=== PATIENT | female | born 1930 | race Caucasian/White ===

== ENCOUNTER 2016-10-15 23:11 | Observation (INO) ==
--- NOTE | 2016-10-15 23:44 | Emergency Department Note ---
Disposition Clinical Impression: Tachycardia Chest pain Qualifiers: Chest pain type: unspecified Qualified Code(s): R07.9 - Chest pain, unspecified Disposition: Admitted As Inpatient Condition: Good Time of Disposition: 00:48 Chest Pain HPI - General Chief Complaint: ED Chest Pain Stated Complaint: throat pain. high bp Time Seen by Provider: 10/15/16 23:24 Source: patient Mode of arrival: ambulatory Limitations: no limitations Vital Signs Reviewed: Yes Nursing Notes Reviewed: Yes - History of Present Illness HPI Narrative: 86-year-old female with past medical history of hypertension presents with right neck pain radiating up into her right jaw with mild associated shortness of breath. She states that this began about 2 hours ago. When she checked her blood pressure she found her blood pressure to be high in the 140s systolic and her heart rate to be 110-120. Her symptoms did not improve with rest today she came in for evaluation. She denies any history of coronary artery disease. She states that she has never had a left heart catheter, but had a stress test that was normal at least 10 years ago. She denies any recent cough or illness. She takes lisinopril as directed. She has not missed any doses. She does not use any stimulants. No tobacco abuse. Severity scale (1-10): 8 - Related Data Home Medications Medication Instructions Recorded Confirmed Lisinopril 08/28/15 Poly-Ferrex 08/28/15 Previous Rx's Medication Instructions Recorded Azithromycin [Zithromax] 250 mg PO DAILY #6 tablet 08/28/15 Benzonatate [Tessalon] 200 mg PO TID PRN #30 capsule 08/28/15 GuaiFENesin ER [Mucinex] 1,200 mg PO BID #20 tbbp.12hr 08/28/15 Ondansetron ODT [Zofran ODT] 4 mg SL Q6HR PRN #20 tab.rapdis 11/05/15 Allergies Allergy/AdvReac Type Severity Reaction Status Date / Time Penicillins [PCN] Allergy Rash Verified 10/15/16 23:21 All systems ED: reviewed and negative except as stated. Chest Pain PMH - Past Medical History Medical history: Reports: hypertension Psychiatric history: Reports: no psych history - Social History Smoking Status: Never smoker Alcohol use: Reports: none Drug use: Reports: none Physical Exam - Head Head exam: atraumatic, normocephalic, normal inspection - Eye Eye exam: Present: normal appearance, PERRL, EOMI - ENT TMs normal bilaterally. Oropharynx normal. - Neck Neck exam: Present: normal inspection, full ROM, trachea midline, no lymphadenopathy. - Chest Chest inspection: Present: normal inspection, symmetric chest wall rise - Respiratory Respiratory exam: Clear to auscultation bilaterally without wheezes rales or rhonchi Cardiovascular Tachycardia, regular, no murmurs. - Abdominal Exam Abdominal exam: Present: soft, Non-Tender. Absent: tenderness, distention, guarding, rebound, rigidity - Extremities Exam Extremities exam: Present: normal inspection, full ROM - Expanded Lower Extremity Exam Hip/Pelvis exam: Present: normal inspection, full ROM - Back Exam Back exam: Present: normal inspection, full ROM. Absent: tenderness, CVA tenderness (R), CVA tenderness (L) - Neurological Exam Neurological exam: Present: alert, oriented X3, CN II-XII intact - Psychiatric Psychiatric exam: Present: normal affect, normal mood - Skin Skin exam: Present: warm, dry, intact, normal color - General Limitations: no limitations General appearance: alert Course - Reevaluation(s) Reevaluation #1: Troponin negative. No acute findings on x-ray. Patient received nitroglycerin and aspirin with resolution of her symptoms. Heart rate was 90 on my reevaluation. Heart rate was as high as 1:30 during the emergency department stay. We will admit the patient for anginal chest pain and tachycardia. The patient will need evaluation of her chest pain and may need adjustment of her antihypertensives. Time: 00:48 Reevaluation #2: Patient accepted by hospitalist for further management. Time: 01:07 Vital Signs Temperature 98.2 F 10/15/16 23:18 Pulse Rate 121 10/15/16 23:18 Respiratory Rate 18 10/15/16 23:18 Blood Pressure 162/89 10/15/16 23:18 O2 Sat by Pulse Oximetry 94 L 10/15/16 23:18 Temperature 98.2 F 10/15/16 23:18 Pulse Rate 108 10/16/16 00:01 Respiratory Rate 18 10/16/16 02:09 Blood Pressure 133/65 10/16/16 02:09 O2 Sat by Pulse Oximetry 95 10/16/16 00:01 Oxygen Delivery Oxygen Delivery Room Air Chest Pain - Medical Records Medical records reviewed: Yes I reviewed the patient's medical records. - Lab Data Lab results reviewed: Yes I reviewed the patient's lab results. Result diagrams: 10/15/16 23:45 10/15/16 23:45 Lab Results 10/15/16 10/15/16 10/15/16 Range/Units 23:45 23:45 23:45 WBC 17.3 H (4.3-11.1) K/mcL RBC 4.97 (3.82-4.97) M/mcL Hgb 13.6 (11.5-15.4) g/dL Hct 43.2 (35.3-44.9) % MCV 86.9 (83.0-100.0) fL MCH 27.4 L (28.0-33.3) pg MCHC 31.5 L (31.6-35.5) g/dL RDW 14.0 (11.5-14.5) % Plt Count 317 (140-400) K/mcL MPV 9.4 (9.4-12.4) fL Immature Gran % 0.5 (0-4) % Seg Neutrophils % 77.9 % Lymphocytes % 12.5 % Monocytes % 7.2 % Eosinophils % 1.4 % Basophils % 0.5 % Neutrophils # 13.5 H (1.6-8.9) K/mcL Lymphocytes # 2.2 (0.6-4.6) K/mcL Monocytes # 1.3 (0.0-1.3) K/mcL Eosinophils # 0.2 (0.0-0.6) K/mcL Basophils # 0.1 (0.0-0.2) K/mcL PT 10.2 (9.4-12.1) Seconds INR 1.0 APTT 26.6 (26.0-36.0) Seconds Sodium 138 (136-145) mEq/L Potassium 3.4 L (3.5-4.5) mEq/L Chloride 103 (98-109) mEq/L Carbon Dioxide 25 (19-29) mEq/L BUN 18 (7-20) mg/dL Creatinine 1.07 (0.57-1.11) mg/dL Est GFR ( Amer) 59 L (> 60) Est GFR (Non-Af Amer) 49 L (> 60) BUN/Creatinine Ratio 17 (6-26) Glucose 143 H (70-99) mg/dL Calculated Osmolality 290 (280-300) Calcium 9.5 (8.6-10.8) mg/dL Troponin I (0-0.03) ng/mL 10/15/16 Range/Units 23:45 WBC (4.3-11.1) K/mcL RBC (3.82-4.97) M/mcL Hgb (11.5-15.4) g/dL Hct (35.3-44.9) % MCV (83.0-100.0) fL MCH (28.0-33.3) pg MCHC (31.6-35.5) g/dL RDW (11.5-14.5) % Plt Count (140-400) K/mcL MPV (9.4-12.4) fL Immature Gran % (0-4) % Seg Neutrophils % % Lymphocytes % % Monocytes % % Eosinophils % % Basophils % % Neutrophils # (1.6-8.9) K/mcL Lymphocytes # (0.6-4.6) K/mcL Monocytes # (0.0-1.3) K/mcL Eosinophils # (0.0-0.6) K/mcL Basophils # (0.0-0.2) K/mcL PT (9.4-12.1) Seconds INR APTT (26.0-36.0) Seconds Sodium (136-145) mEq/L Potassium (3.5-4.5) mEq/L Chloride (98-109) mEq/L Carbon Dioxide (19-29) mEq/L BUN (7-20) mg/dL Creatinine (0.57-1.11) mg/dL Est GFR ( Amer) (> 60) Est GFR (Non-Af Amer) (> 60) BUN/Creatinine Ratio (6-26) Glucose (70-99) mg/dL Calculated Osmolality (280-300) Calcium (8.6-10.8) mg/dL Troponin I 0.00 (0-0.03) ng/mL - Radiology Data Radiology results reviewed: Yes I reviewed the patient's radiology results. - EKG Data EKG attestation: Yes I reviewed and interpreted this EKG. EKG results narrative: Sinus tachycardia at 116 with left axis deviation. There is a right bundle- branch block with QRS of 131. No ST elevation or depression. No old EKG available. Heart Score - Score History: Moderately Suspicious EKG: Non Specific repolarisation Disturbance Age: Greater than 65 Risk Factors: 1-2 risk factors Troponin: Less than normal limit HEART Score Total: 5 Attestation Statement - Attestation Attestation: For this encounter, I have reviewed the resident, [employer], or PA documentation, treatment plan, and medical decision making; and I have had face to face time with this patient. 86-year-old female presents with concerns of right jaw pain and shortness of breath. Patient states that these symptoms occurred while doing work around the house. Patient states that this is never happened to her before. She denies any recent trauma. Patient denies associated nausea or diaphoresis. On initial presentation the patient is tachycardic. She is satting well. Patient has no clinical signs or symptoms of DVT. No history of recent immobilization or surgery within the previous 4 weeks. No recent long flight or travel. No previous PE or DVT in personal or family history. No history of hemoptysis. No history of malignancy with treatment within the past 6 months. Initial trop negative. ECG shows sinus tachycardia without evidence of STEMI. Patient has a HEART score of 5. There is concern that the patient's jaw pain is a cardiac equivalent and we will admit the patient for further care. Patient comfortable with the plan for admission to the hospital for continued care.
[2016-10-15] MEDS ORDERED: Aspirin 81 MG TAB.CHEW PO ONE (23:46)
[2016-10-15] MEDS ORDERED: Nitroglycerin 0.4 MG TAB.SUBL SL STA (23:46)
[2016-10-15 23:51] LABS: Basophils # 0.1 K/mcL (0.0-0.2); Basophils % 0.5 %; Eosinophils # 0.2 K/mcL (0.0-0.6); Eosinophils % 1.4 %; Hematocrit 43.2 % (35.3-44.9); Hemoglobin 13.6 g/dL (11.5-15.4); Immature Granulocytes % 0.5 % (0-4); Lymphocytes # 2.2 K/mcL (0.6-4.6); Lymphocytes % 12.5 %; Mean Corpuscular HGB Conc 31.5 g/dL (31.6-35.5); Mean Corpuscular Hemoglobin 27.4 pg (28.0-33.3); Mean Corpuscular Volume 86.9 fL (83.0-100.0); Mean Platelet Volume 9.4 fL (9.4-12.4); Monocytes # 1.3 K/mcL (0.0-1.3); Monocytes % 7.2 %; Neutrophils # 13.5 K/mcL (1.6-8.9); Platelet Count 317 K/mcL (140-400); Red Blood Count 4.97 M/mcL (3.82-4.97); Segmented Neutrophils % 77.9 %
[2016-10-15 23:57] LABS: Prothrombin Time 10.2 Seconds (9.4-12.1)
[2016-10-15 23:59] LABS: Activated Partial Thrombo Time 26.6 Seconds (26.0-36.0)
[2016-10-16 00:04] LABS: Calcium 9.5 mg/dL (8.6-10.8); Potassium 3.4 mEq/L (3.5-4.5)
[2016-10-16] MEDS ORDERED: Benzonatate 100 MG CAPSULE PO PRN (01:33)
[2016-10-16] MEDS ORDERED: *HR* Morphine 2 MG/ML SYRINGE IVP STA (01:37)
[2016-10-16] MEDS ORDERED: *HR* Metoprolol 5 MG/5 ML VIAL IVP PRN (01:37)
[2016-10-16] MEDS ORDERED: Nitroglycerin 0.4 MG TAB.SUBL SL PRN (01:37)
[2016-10-16] MEDS ORDERED: *HR* LORazepam 0.5 MG TABLET PO PRN (01:40)
[2016-10-16] MEDS ORDERED: Potassium Chloride 40 MEQ, Lidocaine 1% 2 ML in D5% in Water 500 ML IVPB ONE (01:40)
--- NOTE | 2016-10-16 04:28 | Internal Med History&Physical ---
<Corinne Wallace - Last Filed: 10/16/16 04:14> Date of Encounter: 10/16/16 Time of Encounter: 03:30 Assessment and Plan (1) Neck pain on right side Status: Acute Patient had signs of typical anginal pain in the right side of her neck that was relieved with nitroglycerin. CT cervical spine pending. Patient is declining stress test at this time, but is willing to talk to cover cutter machine about it Her WAYNE score is 2, indicating 8% risk of all cause mortality at 14 days. EKG reviewed: showed sinus tachy with RBBB. Initial troponin zero, will trend. Patient started on ASA, statin, BB repeat EKG in morning. Echo pending. cardiac diet. consult to cardiology for evaluation and recommendations. (2) Leukocytosis Status: Acute WBC at ed was 17.3, repeat CBC showed white count of 14.9. Etiology unclear at this time. CXR significant for hiatal hernia, small nodular density at left base, no acute cardiopulmonary process. urinalysis with culture pending. Qualifiers: Leukocytosis type: unspecified Qualified Code(s): D72.829 - Elevated white blood cell count, unspecified (3) HTN (hypertension) Status: Acute continue home med lisinopril Qualifiers: Hypertension type: essential hypertension Qualified Code(s): I10 - Essential (primary) hypertension (4) DVT prophylaxis Status: Acute Heparin SQ Internal Medicine - H&P: HPI Chief complaint: Right neck pain Admitted From: Emergency Dept Plans for Post Hospital Care: Home History of present illness: PCP: Siena Vargas Ms. Espinal is a 86 year old female with PMHx of HTN. She came to the ED with CC of right neck pain that started at 5:30 pm yesterday evening. She states that her pain was in her right jaw bone and radiated down her neck. She took Ibuprofen with no relief. When the pain started, it was about 7-8 out of 10. Patient states that she did NOT have chest pain at any point during the evening. She also denied having Shortness of breath. When she got to the ED, she received ASA and nitroglycerin, which relieved the neck pain. At the ED she was found to have HR 121, BP 162/89. Upon interview, the patient states that her neck pain is 0/10. Patient denies headache, slurred speech, facial drooping. Denies history of motor vehicle accidents or falls. Social Hx: lives with her son. Not a smoker and has no hx of smoking. Denies alcohol or illicit drug use. Family Hx: mother at 67, cause unknown. Dad at 56 from emphysema. Her paternal grandfather had emphysema as well. She has one daughter with cervical cancer. Her son has COPD and is a diabetic. Surgical Hx: tonsilllectomy at 15, Left breast biopsy 30 years ago. Past Med Surg Social Fam HX - Past Medical History Medical history: hypertension Psychiatric history: no psych history - Social History Smoking Status: Never smoker Smokeless Tobacco Status: No Alcohol use: none Drug use: none - Family History Father Name: Jim Briggs Living Status: Age at : 56 Cause of : Emphasyma Hx Family Cardiac Disorders: No Hx Family Respiratory Disorders: Yes (Emphasyma) Hx Family Cancer: No Hx Family GI Disorders: No Hx Family Genitourinary Disorders: No Hx Family Endocrine Disorder: No Hx Family Musculoskeletal Disorders: No Hx Family Neuromuscular Disorders: No Hx Family Neurologic Disorders: No Hx Family HEENT Disorders: No Hx Family Autoimmune Disorders: No Hx Family Reproductive Disorders: No Hx Family Psychosocial Disorders: No Hx Family Medical Disorders: No Internal Medicine - H&P: Meds Lisinopril [Zestril] 20 mg PO DAILY 08/28/15 [History] Aspirin 81 mg PO DAILY 30 Days 10/16/16 [Rx] Atorvastatin [Lipitor] 20 mg PO HS 30 Days 10/16/16 [Rx] Metoprolol [Lopressor] 12.5 mg PO BID 30 Days 10/16/16 [Rx] Allergies Penicillins [PCN] Allergy (Verified 10/16/16 09:14) Rash All Systems PM: A 10-system review of systems was performed and is negative for pertinent findings except as documented above in the HPI. - Constitutional Constitutional: no anorexia, no chills, no falls - EENT Eyes: no blurry vision, no change in vision Nose, mouth and throat: neck pain - Cardiovascular Cardiovascular ROS IM: no chest pain, no claudication, no lightheadedness, no syncope - Respiratory Respiratory: no wheezing - Gastrointestinal Gastrointestinal: no abdominal pain, no hematochezia, no melena, no vomiting - Musculoskeletal Musculoskeletal ROS IM: neck pain - Neurological Neurological ROS: no abnormal gait, no abnormal movements, no abnormal speech, no disequilibrium, no dizziness, no frequent falls, no headache(s) - Constitutional Vitals: Temp Pulse Resp BP Pulse Ox 98.0 F 87 16 165/74 94 L 10/16/16 03:03 10/16/16 03:03 10/16/16 03:03 10/16/16 03:03 10/16/16 03:03 General appearance: Present: A&O X 3, pleasant, no acute distress, answers questions appropriately - Head Head exam: Present: atraumatic, normocephalic - Neck Neck exam general surgery: Present: nuchal rigidity, supple, trachea midline. Absent: tenderness, thyromegaly Additional comments: restricted neck motion in extension, but patient states this is chronic for her. noticeable restriction in range of motion in flexion, rotation left and right, and Sidebending left and right at extremes. - Respiratory Respiratory exam: Present: CTAB - Cardiovascular Cardiovascular exam: Present: RRR, +S1, +S2 - GI/Abdominal GI/Abdominal exam: Present: normal bowel sounds, soft. Absent: distended, guarding, tenderness - Extremities Exam Extremities exam: Absent: cyanotic, pedal edema, tenderness - Back Exam Additional comments: freckles noted on back. - Neurological Exam Neurological exam: Present: alert, oriented X3, no focal deficits. Absent: facial droop, speech deficit - Skin Additional comments: two plaques noted on left of stomach, and one under the right breast. Internal Med - H&P Results - Labs CBC & Chem 7: 10/15/16 23:45 10/15/16 23:45 <Dante De La Cruz - Last Filed: 10/17/16 02:04> Date of Encounter: 10/16/16 Internal Medicine - H&P: HPI History of present illness: Ms. Espinal is a 86 year old female admitted to [facility] with chief complaint of acute right neck and jaw pain (rule out anginal equivalent). The patient was visited and interviewed and examined. I examined this patient and my medical decision-making was reviewed with the Resident Physician. I agree with the documented findings, disposition and treatment plan as described except to the extent set forth below. Cumulative laboratory and radiographic data was reviewed and considered and discussed. Pertinent ancillary medical records including ECW and PCI documentation was reviewed and considered. Given the patient's presenting concerns, past medical history, clinical findings and symptoms, she is admitted at this time to undergo further evaluation and disposition. Orders were written as per the computerized physician order increase system.................... All Systems PM: A 10-system review of systems was performed and is negative for pertinent findings except as documented above in the HPI. - Constitutional Vitals: Temp Pulse Resp BP Pulse Ox 99.7 F H 81 16 143/74 94 L 10/16/16 19:09 10/16/16 19:09 10/16/16 19:09 10/16/16 19:09 10/16/16 19:09 Internal Med - H&P Results - Labs CBC & Chem 7: 10/16/16 04:03 10/16/16 04:03 Labs: Short CBC 10/16/16 Range/Units 04:03 WBC 14.9 H (4.3-11.1) K/mcL Hgb 13.0 (11.5-15.4) g/dL Hct 40.9 (35.3-44.9) % Plt Count 297 (140-400) K/mcL Neutrophils # 11.0 H (1.6-8.9) K/mcL BMP 10/16/16 04:03 Sodium 139 Potassium 3.5 Chloride 103 Carbon Dioxide 25 BUN 16 Creatinine 0.96 Glucose 119 H Calcium 9.2 Cardiac Enzymes 10/16/16 10/16/16 Range/Units 06:25 13:02 Troponin I 0.02 0.02 (0-0.03) ng/mL Liver Function 10/16/16 Range/Units 04:03 Total Bilirubin 0.4 (0.2-1.2) mg/dL AST 18 (5-34) Units/L ALT 8 (0-55) Units/L Alkaline Phosphatase 61 (38-126) Units/L Albumin 3.3 L (3.5-5.0) g/dL Urine 10/16/16 Range/Units 07:50 Urine Color Yellow (Yellow) Urine Clarity Clear (Clear) Urine pH 7.0 (5.0-8.0) pH Units Ur Specific [place] 1.008 L (1.010-1.025) Urine Protein Negative (Neg-Trace) mg/dL Urine Glucose (UA) Normal (Normal) mg/dL - ABG Interpretation ABG results: 10/16/16 04:03 VBG pH 7.39 VBG pCO2 51 VBG pO2 35 VBG HCO3 30.9 H - Impressions ITS Impressions Cervical Spine CT 10/16/16 08:30 IMPRESSION: 1. No acute abnormality of the cervical spine. 2. Multilevel degenerative changes are detailed above. These are most significant at C5-6. D/ / Clark Talbert MD / Clark Talbert MD Interpreting Provider: Clark Talbert MD Vital Signs Temp Pulse Resp BP Pulse Ox 10/16/16 19:09 99.7 F H 81 16 143/74 94 L 10/16/16 15:41 98.9 F 81 17 137/71 96 10/16/16 11:10 98.1 F 76 16 120/70 96 10/16/16 09:00 98.1 F 99 18 166/69 97 10/16/16 03:05 94 L 10/16/16 03:03 98.0 F 87 16 165/74 94 L 10/16/16 02:09 18 133/65 Intake and Output 10/16/16 10/16/16 10/17/16 15:59 23:59 07:59 Intake Total 360 / 360 120 / 120 Balance 360 / 360 120 / 120 Intake: Oral 360 / 360 120 / 120 Other: Meal Lunch Dinner Percent of Meal Consumed 100% 100% Short CBC 10/16/16 Range/Units 04:03 WBC 14.9 H (4.3-11.1) K/mcL Hgb 13.0 (11.5-15.4) g/dL Hct 40.9 (35.3-44.9) % Plt Count 297 (140-400) K/mcL Neutrophils # 11.0 H (1.6-8.9) K/mcL BMP 10/16/16 Range/Units 04:03 Sodium 139 (136-145) mEq/L Potassium 3.5 (3.5-4.5) mEq/L Chloride 103 (98-109) mEq/L Carbon Dioxide 25 (19-29) mEq/L BUN 16 (7-20) mg/dL Creatinine 0.96 (0.57-1.11) mg/dL Glucose 119 H (70-99) mg/dL Calcium 9.2 (8.6-10.8) mg/dL Cardiac Enzymes 10/16/16 10/16/16 Range/Units 13:02 06:25 Troponin I 0.02 0.02 (0-0.03) ng/mL Liver Function 10/16/16 Range/Units 04:03 Total Bilirubin 0.4 (0.2-1.2) mg/dL AST 18 (5-34) Units/L ALT 8 (0-55) Units/L Alkaline Phosphatase 61 (38-126) Units/L Albumin 3.3 L (3.5-5.0) g/dL Urine 10/16/16 Range/Units 07:50 Urine Color Yellow (Yellow) Urine Clarity Clear (Clear) Urine pH 7.0 (5.0-8.0) pH Units Ur Specific [place] 1.008 L (1.010-1.025) Urine Protein Negative (Neg-Trace) mg/dL Urine Glucose (UA) Normal (Normal) mg/dL 10/16/16 04:03 VBG pH 7.39 VBG pCO2 51 VBG pO2 35 VBG HCO3 30.9 H Allergies Allergy/AdvReac Type Severity Reaction Status Date / Time Penicillins [PCN] Allergy Rash Verified 10/16/16 09:14 Abnormal lab results WBC 14.9 K/mcL (4.3-11.1) H 10/16/16 04:03 MCH 27.4 pg (28.0-33.3) L 10/16/16 04:03 Neutrophils # 11.0 K/mcL (1.6-8.9) H 10/16/16 04:03 VBG HCO3 30.9 mEq/L (21-27) H 10/16/16 04:03 Est GFR (Non-Af Amer) 55 (> 60) L 10/16/16 04:03 Glucose 119 mg/dL (70-99) H 10/16/16 04:03 C-Reactive Protein 13 mg/L (Less than 5) H 10/16/16 04:03 Albumin 3.3 g/dL (3.5-5.0) L 10/16/16 04:03 Triglycerides 158 mg/dL (< 150) H 10/16/16 04:03 Cholesterol 210 mg/dL (< 200) H 10/16/16 04:03 LDL Cholesterol, Calc 116 mg/dL (0-99) H 10/16/16 04:03 VLDL Cholesterol, Calc 32 mg/dL (< 31) H 10/16/16 04:03 HDL Cholesterol 62 mg/dL (40-59) H 10/16/16 04:03 Ur Specific [place] 1.008 (1.010-1.025) L 10/16/16 07:50 Urine Blood Small (Negative) H 10/16/16 07:50 Ur Leukocyte Esterase Trace (Negative) H 10/16/16 07:50 Urine Microscopic RBC 3-5 per hpf (0-3) H 10/16/16 07:50 Abnormal lab results WBC 14.9 K/mcL (4.3-11.1) H 10/16/16 04:03 MCH 27.4 pg (28.0-33.3) L 10/16/16 04:03 Neutrophils # 11.0 K/mcL (1.6-8.9) H 10/16/16 04:03 VBG HCO3 30.9 mEq/L (21-27) H 10/16/16 04:03 Est GFR (Non-Af Amer) 55 (> 60) L 10/16/16 04:03 Glucose 119 mg/dL (70-99) H 10/16/16 04:03 C-Reactive Protein 13 mg/L (Less than 5) H 10/16/16 04:03 Albumin 3.3 g/dL (3.5-5.0) L 10/16/16 04:03 Triglycerides 158 mg/dL (< 150) H 10/16/16 04:03 Cholesterol 210 mg/dL (< 200) H 10/16/16 04:03 LDL Cholesterol, Calc 116 mg/dL (0-99) H 10/16/16 04:03 VLDL Cholesterol, Calc 32 mg/dL (< 31) H 10/16/16 04:03 HDL Cholesterol 62 mg/dL (40-59) H 10/16/16 04:03 Ur Specific [place] 1.008 (1.010-1.025) L 10/16/16 07:50 Urine Blood Small (Negative) H 10/16/16 07:50 Ur Leukocyte Esterase Trace (Negative) H 10/16/16 07:50 Urine Microscopic RBC 3-5 per hpf (0-3) H 10/16/16 07:50 Laboratory Results WBC 14.9 K/mcL (4.3-11.1) H 10/16/16 04:03 RBC 4.74 M/mcL (3.82-4.97) 10/16/16 04:03 Hgb 13.0 g/dL (11.5-15.4) 10/16/16 04:03 Hct 40.9 % (35.3-44.9) 10/16/16 04:03 MCV 86.3 fL (83.0-100.0) 10/16/16 04:03 MCH 27.4 pg (28.0-33.3) L 10/16/16 04:03 MCHC 31.8 g/dL (31.6-35.5) 10/16/16 04:03 RDW 14.1 % (11.5-14.5) 10/16/16 04:03 Plt Count 297 K/mcL (140-400) 10/16/16 04:03 MPV 9.9 fL (9.4-12.4) 10/16/16 04:03 Immature Gran % 0.6 % (0-4) 10/16/16 04:03 Seg Neutrophils % 74.1 % 10/16/16 04:03 Lymphocytes % 15.6 % 10/16/16 04:03 Monocytes % 8.7 % 10/16/16 04:03 Eosinophils % 0.5 % 10/16/16 04:03 Basophils % 0.5 % 10/16/16 04:03 Neutrophils # 11.0 K/mcL (1.6-8.9) H 10/16/16 04:03 Lymphocytes # 2.3 K/mcL (0.6-4.6) 10/16/16 04:03 Monocytes # 1.3 K/mcL (0.0-1.3) 10/16/16 04:03 Eosinophils # 0.1 K/mcL (0.0-0.6) 10/16/16 04:03 Basophils # 0.1 K/mcL (0.0-0.2) 10/16/16 04:03 PT 10.2 Seconds (9.4-12.1) 10/15/16 23:45 INR 1.0 10/15/16 23:45 APTT 26.6 Seconds (26.0-36.0) 10/15/16 23:45 VBG pH 7.39 pH Units (7.32-7.42) 10/16/16 04:03 VBG pCO2 51 mmHg (41-51) 10/16/16 04:03 VBG pO2 35 mmHg (25-40) 10/16/16 04:03 VBG HCO3 30.9 mEq/L (21-27) H 10/16/16 04:03 Sodium 139 mEq/L (136-145) 10/16/16 04:03 Potassium 3.5 mEq/L (3.5-4.5) 10/16/16 04:03 Chloride 103 mEq/L (98-109) 10/16/16 04:03 Carbon Dioxide 25 mEq/L (19-29) 10/16/16 04:03 BUN 16 mg/dL (7-20) 10/16/16 04:03 Creatinine 0.96 mg/dL (0.57-1.11) 10/16/16 04:03 Est GFR ( Amer) > 60 (> 60) 10/16/16 04:03 Est GFR (Non-Af Amer) 55 (> 60) L 10/16/16 04:03 BUN/Creatinine Ratio 17 (6-26) 10/16/16 04:03 Glucose 119 mg/dL (70-99) H 10/16/16 04:03 Est Mean Plasma Glucose 111 mg/dl 10/16/16 04:03 Hemoglobin A1c 5.5 % (-5.6) 10/16/16 04:03 Calculated Osmolality 290 (280-300) 10/16/16 04:03 Calcium 9.2 mg/dL (8.6-10.8) 10/16/16 04:03 Ionized Calcium 1.16 mmol/L (1.15-1.35) 10/16/16 04:03 Phosphorus 2.7 mg/dL (2.3-4.7) 10/16/16 04:03 Magnesium 1.7 mg/dL (1.6-2.6) 10/16/16 04:03 Total Bilirubin 0.4 mg/dL (0.2-1.2) 10/16/16 04:03 AST 18 Units/L (5-34) 10/16/16 04:03 ALT 8 Units/L (0-55) 10/16/16 04:03 Alkaline Phosphatase 61 Units/L (38-126) 10/16/16 04:03 Troponin I 0.02 ng/mL (0-0.03) 10/16/16 13:02 C-Reactive Protein 13 mg/L (Less than 5) H 10/16/16 04:03 B-Natriuretic Peptide 66 pg/mL (0-100) 10/16/16 04:03 Serum Total Protein 6.3 g/dL (6.0-8.3) 10/16/16 04:03 Albumin 3.3 g/dL (3.5-5.0) L 10/16/16 04:03 Globulin 3.0 g/dL (2.4-3.5) 10/16/16 04:03 Albumin/Globulin Ratio 1.1 (1.1-2.2) 10/16/16 04:03 Triglycerides 158 mg/dL (< 150) H 10/16/16 04:03 Cholesterol 210 mg/dL (< 200) H 10/16/16 04:03 LDL Cholesterol, Calc 116 mg/dL (0-99) H 10/16/16 04:03 VLDL Cholesterol, Calc 32 mg/dL (< 31) H 10/16/16 04:03 HDL Cholesterol 62 mg/dL (40-59) H 10/16/16 04:03 Cholesterol/HDL Ratio 3.4 (0-4.9) 10/16/16 04:03 TSH 1.970 mcIU/mL (0.350-4.840) 10/16/16 04:03 Free T4 0.88 ng/dl (0.70-1.48) 10/16/16 04:03 Free T3 2.12 pg/mL (1.71-3.71) 10/16/16 04:03 Urine Color Yellow (Yellow) 10/16/16 07:50 Urine Clarity Clear (Clear) 10/16/16 07:50 Urine pH 7.0 pH Units (5.0-8.0) 10/16/16 07:50 Ur Specific [place] 1.008 (1.010-1.025) L 10/16/16 07:50 Urine Protein Negative mg/dL (Neg-Trace) 10/16/16 07:50 Urine Glucose (UA) Normal mg/dL (Normal) 10/16/16 07:50 Urine Ketones Negative mg/dL (Negative) 10/16/16 07:50 Urine Blood Small (Negative) H 10/16/16 07:50 Urine Nitrite Negative (Negative) 10/16/16 07:50 Urine Bilirubin Negative (Negative) 10/16/16 07:50 Urine Urobilinogen Normal mg/dL (Normal) 10/16/16 07:50 Ur Leukocyte Esterase Trace (Negative) H 10/16/16 07:50 Urine Microscopic RBC 3-5 per hpf (0-3) H 10/16/16 07:50 Urine Microscopic WBC 0-3 per hpf (0-3) 10/16/16 07:50 Ur Squamous Epith Cells Few per lpf (None-Few) 10/16/16 07:50 Urine Bacteria None Seen per hpf (None-Few) 10/16/16 07:50 Hyaline Casts None Seen per lpf (None-Few) 10/16/16 07:50 Blood Type A POSITIVE 10/16/16 04:03 Antibody Screen NEGATIVE 10/16/16 04:03 Impressions Chest X-Ray 10/15/16 23:30 IMPRESSION: Hiatal hernia. No acute cardiopulmonary disease identified. Left lower lobe pulmonary nodule. Follow-up as originally recommended. D/ / Otto Woodall MD / Otto Woodall MD Interpreting Provider: Otto Woodall MD Cervical Spine CT 10/16/16 08:30 IMPRESSION: 1. No acute abnormality of the cervical spine. 2. Multilevel degenerative changes are detailed above. These are most significant at C5-6. D/ / Clark Talbert MD / Clark Talbert MD Interpreting Provider: Clark Talbert MD - Attending Attestation My signature below is to certify that this patient is under my care and that I, or the Resident Physician working with me, has had a efdu-qi-dopt encounter with this patient. Plan of care has been reviewed and discussed in detail with the patient and family. Questions were addressed to her satisfaction and reassurance. Advance care directive discussion briefly addressed. The patient does not declare any healthcare restrictions at this time. Outpatient medication schedules will be reviewed and confirmed and facilitated as appropriate. Reconciliation of home treatments including adjustments, substitutions and reintroduction into the treatment regimen and we will address necessary maintenance therapies for chronic pre-existing medical conditions. Smoking cessation counseling briefly addressed. The patient is a nonsmoker. Hospital course will be dependent on clinical findings, treatment response and potential consultative interventions. The patient is at risk for acute clinical decline and morbidity given the presenting chief complaint, findings and associated comorbidities. Condition is serious. Prognosis is cautiously optimistic. CODE STATUS is full.
[2016-10-16 04:52] LABS: Basophils # 0.1 K/mcL (0.0-0.2); Basophils % 0.5 %; Eosinophils # 0.1 K/mcL (0.0-0.6); Eosinophils % 0.5 %; Hematocrit 40.9 % (35.3-44.9); Immature Granulocytes % 0.6 % (0-4); Lymphocytes # 2.3 K/mcL (0.6-4.6); Lymphocytes % 15.6 %; Mean Corpuscular HGB Conc 31.8 g/dL (31.6-35.5); Mean Corpuscular Hemoglobin 27.4 pg (28.0-33.3); Mean Corpuscular Volume 86.3 fL (83.0-100.0); Mean Platelet Volume 9.9 fL (9.4-12.4); Monocytes # 1.3 K/mcL (0.0-1.3); Monocytes % 8.7 %; Platelet Count 297 K/mcL (140-400); Red Blood Count 4.74 M/mcL (3.82-4.97); Red Cell Distribution Width 14.1 % (11.5-14.5); Segmented Neutrophils % 74.1 %
[2016-10-16 05:00] LABS: VBG HCO3 30.9 mEq/L (21-27); VBG PH 7.39 pH Units (7.32-7.42)
[2016-10-16 05:01] LABS: Hemoglobin A1C 5.5 %
[2016-10-16 05:10] LABS: Alanine Aminotransferase 8 Units/L (0-55); Albumin 3.3 g/dL (3.5-5.0); Albumin/Globulin Ratio 1.1 (1.1-2.2); Alkaline Phosphatase 61 Units/L (38-126); Aspartate Amino Transferase 18 Units/L (5-34); BUN/Creatinine Ratio 17 (6-26); Bilirubin,Total 0.4 mg/dL (0.2-1.2); Blood Urea Nitrogen 16 mg/dL (7-20); Calcium 9.2 mg/dL (8.6-10.8); Carbon Dioxide 25 mEq/L (19-29); Chloride 103 mEq/L (98-109); Chol/HDL Ratio 3.4 (0-4.9); Cholesterol 210 mg/dL (< 200); Glucose 119 mg/dL (70-99); HDL Cholesterol 62 mg/dL (40-59); LDL Cholesterol,Calculated 116 mg/dL (0-99); Magnesium 1.7 mg/dL (1.6-2.6); Osmolality,Calculated 290 (280-300); Phosphorous 2.7 mg/dL (2.3-4.7); Potassium 3.5 mEq/L (3.5-4.5); Sodium 139 mEq/L (136-145); Total Protein 6.3 g/dL (6.0-8.3); Triglycerides 158 mg/dL (< 150); eGFR For African Americans > 60 (> 60); eGFR For Non-African Americans 55 (> 60)
[2016-10-16] MEDS: Lisinopril 20 MG TABLET PO SCH ×2 (05:18→09:58)
[2016-10-16 05:33] LABS: Triiodothyronine (T3) Free 2.12 pg/mL (1.71-3.71)
[2016-10-16 05:56] LABS: C-Reactive Protein 13 mg/L (Less than 5)
[2016-10-16] MEDS: *HR* Heparin 5,000 UNIT/ML VIAL SQ SCH ×3 (07:23→14:01)
[2016-10-16] MEDS: Melatonin 3 MG TABLET PO SCH ×2 (07:24→20:34)
[2016-10-16 08:06] LABS: Bilirubin,Urine Negative (Negative); Blood,Urine Small (Negative); Clarity,Urine Clear (Clear); Color,Urine Yellow (Yellow); Glucose,Urine (UA) Normal (Normal); Ketones,Urine Negative (Negative); Leukocyte Esterase,Urine Trace (Negative); Nitrite,Urine Negative (Negative); Protein,Urine Negative (Neg-Trace); Specific Gravity,Urine 1.008 (1.010-1.025); Urobilinogen,Urine Normal (Normal)
[2016-10-16 08:09] LABS: Bacteria,Urine None Seen per hpf (None-Few); Hyaline Casts,Urine None Seen per lpf (None-Few); Squamous Epithelial Cell,Urine Few per lpf (None-Few); WBC,Urine 0-3 per hpf (0-3)
[2016-10-16] MEDS ORDERED: Aspirin 81 MG TAB.CHEW PO SCH (09:00)
--- NOTE | 2016-10-16 11:36 | Cardiology Consult Note ---
Date of Encounter: 10/16/16 Time of Encounter: 11:40 Assessment and Plan (1) Neck pain on right side Current Visit: Yes Status: Acute Per cardiology: -Patient with right sided neck and jaw pain. Pain not aggervated by factors, but pain was relieved by nitroglycerin in ER. Denies chest pain. Denies cardiac history. Denies family history of cardiac disease. Currently neck/jaw pain free. -Patient very active at home and denies chest, neck, or jaw pain with activities. CT of C-spine reviewed with multiple levels of degenerative joint disease noted. -EKG reviewed, sinus rhythm with right bundle branch block. -Symptoms atypical for anginal chest pain. Echocardiogram pending. Discussed at length with patient and family regarding stress test options. Patient declining stress test at this time. Patient states she will decide about a stress test once echocardiogram results are reviewed. -Will continue to monitor for echocardiogram results. (2) HTN (hypertension) Current Visit: Yes Status: Chronic Per cardiology: -Patient with known history of hypertension. Patient takes lsinopril at home and states compliance with medications. BP on admission 160s, currently 120s. -Continue pura inhibitor and beta brenda as ordered per primary service. -Consider continuing beta brenda as outpatient. -Will continue to monitor. Qualifiers: Hypertension type: essential hypertension Qualified Code(s): I10 - Essential (primary) hypertension Discussion w patient/family: The assessment and plan as outlined above was discussed with the patient and/or family members who expressed understanding and agreement. All questions were answered. Thank you for involving us in the care of your patient. Please call with any questions. Patient was discussed and reviewed with Dr.John Nino. History of Present Illness Consult date: 10/16/16 Requesting physician: Corinne Wallace Consult reason: chest pain Chief complaint: Neck pain History of present illness: Ms. Espinal is a 86 year old female who was in her car yesterday when she got out of her car, she had right sided neck and jaw pain. The pain was not worsened by walking or movement. Patient states she attempted to go inside her home and rest, but pain was not relieved. Patient presented to the ER with her daughter and states her pain was relieved when the ER administered nitroglycerin sublingual and aspirin. Patient denies pain since admission to the floor. Past Med Surg Social Fam HX - Past Medical History Medical history: hypertension Psychiatric history: no psych history - Social History Smoking Status: Never smoker Smokeless Tobacco Status: No Alcohol use: none Drug use: none - Family History Father Name: Jim Briggs Living Status: Age at : 56 Cause of : Emphasyma Hx Family Cardiac Disorders: No Hx Family Respiratory Disorders: Yes (Emphasyma) Hx Family Cancer: No Hx Family GI Disorders: No Hx Family Genitourinary Disorders: No Hx Family Endocrine Disorder: No Hx Family Musculoskeletal Disorders: No Hx Family Neuromuscular Disorders: No Hx Family Neurologic Disorders: No Hx Family HEENT Disorders: No Hx Family Autoimmune Disorders: No Hx Family Reproductive Disorders: No Hx Family Psychosocial Disorders: No Hx Family Medical Disorders: No Medications and Allergies Lisinopril [Zestril] 20 mg PO DAILY 08/28/15 [History] Allergies Penicillins [PCN] Allergy (Verified 10/16/16 09:14) Rash All Systems Review: A 10-system review of systems was performed and is negative for pertinent findings except as documented above in the HPI. - Musculoskeletal Musculoskeletal: other (neck pain) Physical Examination Vital Signs, Last 4 Hours Temp Pulse Resp BP Pulse Ox 10/16/16 11:10 98.1 F 76 16 120/70 96 10/16/16 09:00 98.1 F 99 18 166/69 97 General: Conversant, No Apparent Distress HEENT: Atraumatic, Normocephaly, Mucus Membranes Moist Neck: No JVD Cardiac: Reg Rate and Rhythm, Normal S1 and S2, No Murmur Lungs: Normal Breath Sounds, No Wheeze, Rales, Rhonchi Neuro: Alert and responsive, No focal deficits noted Abdomen: Soft, Non-Tender Skin: No rashes noted on visualized skin Musculoskeletal: No Chest Wall Tenderness Extremities: No Clubbing, No Cyanosis, Normal Pulses, Other (mild bilateral non- pitting pedal edema. ) Results 10/16/16 04:03 10/16/16 04:03 Lab Results 10/16/16 10/16/16 10/16/16 04:03 04:03 04:03 WBC 14.9 H Hgb 13.0 Hct 40.9 Plt Count 297 Sodium 139 Potassium 3.5 Chloride 103 Carbon Dioxide 25 BUN 16 Creatinine 0.96 Glucose 119 H Calcium 9.2 Magnesium 1.7 Total Bilirubin 0.4 AST 18 ALT 8 Alkaline Phosphatase 61 Troponin I B-Natriuretic Peptide 66 TSH 1.970 10/16/16 06:25 WBC Hgb Hct Plt Count Sodium Potassium Chloride Carbon Dioxide BUN Creatinine Glucose Calcium Magnesium Total Bilirubin AST ALT Alkaline Phosphatase Troponin I 0.02 B-Natriuretic Peptide TSH - Imaging and Cardiology Chest Xray: report reviewed Echo: pending Other Results: CT C-Spine report reviewed - EKG Interpretation EKG results cardiology: personally reviewed (24 hour telemetry reviewed with average heart rate 89. No significant events noted.), sinus rhythm, right bundle branch block Consult Discharge Plan - Plan Referrals: Siena Martinez MD [Primary Care Provider] -
--- NOTE | 2016-10-16 15:16 | Electrocardiograph Report ---
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
--- NOTE | 2016-10-16 15:22 | Internal Med Progress Note ---
Date of Encounter: 10/16/16 Time of Encounter: 10:30 - Assessment and plan (1) Leukocytosis Current Visit: Yes Status: Acute Assessment and plan: Possibly secondary to dehydration, trending down. 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 with mild canal stenosis Patient has no neurological deficits Tylenol prn Consulted spine surgeon, awaiting review Cardiology had hsarri consulted for possible atypical presentation of ACS Troponin is negative, EKG is sinus with RBBB ECHO is pending, will follow results (3) Degenerative cervical spinal stenosis Current Visit: Yes Status: Acute Assessment and plan: As above (4) HTN (hypertension) Current Visit: Yes Status: Chronic Assessment and plan: Controlled, continue current meds Qualifiers: Hypertension type: essential hypertension Qualified Code(s): I10 - Essential (primary) hypertension - Subjective Interval history: 86 Y/O F with PMH of HTN Being managed and worked up for right-sided jaw/neck pain She is seen at bedside with no new complains and in no form of distress She denies active pain at this time, denies claudication/numbness on her arms - Constitutional Vitals: Temp Pulse Resp BP Pulse Ox 98.1 F 76 16 120/70 96 10/16/16 11:10 10/16/16 11:10 10/16/16 11:10 10/16/16 11:10 10/16/16 11:10 General appearance: Present: A&O X 3, pleasant, no acute distress, answers questions appropriately - Head Head exam: Present: atraumatic, normocephalic - Eye Eye exam: Present: PERRL, conjuntiva pink, sclera anicteric Pupils: Present: PERRL - Neck Neck exam general surgery: Present: supple, trachea midline. Absent: lymphadenopathy - Respiratory Respiratory exam: Present: CTAB. Absent: accessory muscle use, rales, rhonchi, wheezes - Cardiovascular Cardiovascular exam: Present: RRR, +S1, +S2. Absent: diastolic murmur, gallop, rubs, systolic murmur - GI/Abdominal GI/Abdominal exam: Present: normal bowel sounds, soft, no peritoneal signs. Absent: distended, tenderness - Extremities Exam Extremities exam: Present: warm, radial pulses palpable and symetrical. Absent : calf tenderness, cyanotic, pedal edema - Neurological Exam Neurological exam: Present: CN II-XII intact, oriented X3, no focal deficits. Absent: pronater drift, facial droop, speech deficit - Skin Skin exam: Present: dry, intact Internal Medicine: Result - Labs CBC & Chem 7: 10/16/16 04:03 10/16/16 04:03 Labs: Short CBC 10/16/16 Range/Units 04:03 WBC 14.9 H (4.3-11.1) K/mcL Hgb 13.0 (11.5-15.4) g/dL Hct 40.9 (35.3-44.9) % Plt Count 297 (140-400) K/mcL Neutrophils # 11.0 H (1.6-8.9) K/mcL BMP 10/16/16 04:03 Sodium 139 Potassium 3.5 Chloride 103 Carbon Dioxide 25 BUN 16 Creatinine 0.96 Glucose 119 H Calcium 9.2 Cardiac Enzymes 10/16/16 10/16/16 Range/Units 06:25 13:02 Troponin I 0.02 0.02 (0-0.03) ng/mL Liver Function 10/16/16 Range/Units 04:03 Total Bilirubin 0.4 (0.2-1.2) mg/dL AST 18 (5-34) Units/L ALT 8 (0-55) Units/L Alkaline Phosphatase 61 (38-126) Units/L Albumin 3.3 L (3.5-5.0) g/dL Urine 10/16/16 Range/Units 07:50 Urine Color Yellow (Yellow) Urine Clarity Clear (Clear) Urine pH 7.0 (5.0-8.0) pH Units Ur Specific [place] 1.008 L (1.010-1.025) Urine Protein Negative (Neg-Trace) mg/dL Urine Glucose (UA) Normal (Normal) mg/dL - ABG Interpretation ABG results: PT/INR, D-dimer PT 10.2 Seconds (9.4-12.1) 10/15/16 23:45 - Impressions Impressions Cervical Spine CT 10/16/16 08:30 IMPRESSION: 1. No acute abnormality of the cervical spine. 2. Multilevel degenerative changes are detailed above. These are most significant at C5-6. D/ / Clark Talbert MD / Clark Talbert MD Interpreting Provider: Clark Talbert MD Consult Discharge Plan - Plan Referrals: Siena Martinez MD [Primary Care Provider] -
--- NOTE | 2016-10-16 16:49 | ECHO - Doppler Report ---
Echocardiogram Name: Marce Espinal Date of Study: 10/16/2016 Date: 1930 Ht: 62.0 in Medical Record#: [id number] Age: 86 Wt: 147.0 lb Gender: Female BSA: 1.68 Order #: [id number] Location: [facility] Room #: [id number] Reading Physician: Bridgette Pena DO Fuel Buyer: Rosy Marcus RVT Ordering Physician: Dante De La Cruz MD Primary Physician: Siena Martinez MD Indications: ACS Impressions: LVEF 65%. Normal left ventricular size and systolic function. There is evidence of mild diastolic dysfunction of the left ventricle. Normal right ventricular size and function. Mild mitral regurgitation. Mild tricuspid regurgitation. No pulmonary hypertension. Left Ventricular Wall Motion: Rest Echo Findings All wall segments showed normal motion. Findings: Study Quality * Technically adequate exam. ECG Findings * Normal sinus rhythm. Left Ventricle * Normal LV chamber size, wall thickness and function. * LVEF 65%. * Mild left ventricular diastolic dysfunction. Left Atrium * Normal left atrial size. Mitral Valve * No mitral stenosis. * Mild mitral annular calcification * Mildly calcified mitral valve leaflets. * Mild mitral regurgitation. Aortic Valve * No aortic regurgitation. * Trileaflet aortic valve. * Normal aortic valve structure. * No aortic stenosis. Tricuspid Valve * Normal tricuspid valve structure. * Mild tricuspid regurgitation. * Estimated RA pressure is 3 mmHg. * Estimated RVSP is 25 mmHg. * No pulmonary hypertension. Pulmonic Valve * Pulmonic valve is not well visualized. * No pulmonic stenosis. * No pulmonic regurgitation. Pulmonary Artery * Pulmonary artery not well visualized. Right Ventricle * Normal right ventricular structure and function. Right Atrium * Normal right atrial size. Interatrial Septum * No evidence of PFO by color Doppler. IVC * The IVC is not dilated. Pericardium * There is no pericardial effusion present. Aorta * Normally sized aortic root. History Hypertension Measurements: BP: 165/ 147 2D Normal Values IVSd: .90 cm 0.6 - 1.0 cm LVIDd: 3.40 cm 3.7 - 5.6 cm LVPWd: .80 cm 0.6 - 1.1 cm LVIDs: 2.30 cm 1.5 - 3.6 cm AO: 2.20 cm < 4.0 cm LA: 2.60 cm 2.0 - 4.0cm %FS: 32.40 cm >25 % LA volume: 34 Mitral Valve Peak E:1.00 m/sec Peak A:1.47 m/sec E/A Ratio:0.7 Peak E' Lat Enrique:5.95 cm/s Peak E' Med Enrique:6.82 cm/s E/E' Lat Ratio:16.8 E/E' Med Ratio:14.7 Tricuspid Valve TV Regurg Peak Grad: 22.00mmHg TV Regurg Peak Enrique: 2.35m/sec Updated by Bridgette Pena on 10/16/2016 4:41:50 PM electronically signed on 10/16/2016 4:44:28 PM with status of Final Wall Motion Maria: 1=Normal, 2=Hypokinesis, 3=Akinesis, 4=Dyskinesis, 5=Aneurysmal, 6=Hyperkinetic, X=Not Visualized (Blank)=Missing
--- NOTE | 2016-10-16 16:53 | Event Note ---
Date of Encounter: 10/16/16 Time of Encounter: 16:45 - Cardiology Event Note Per discussion with , no wall motion abnormalities, no significant valve issues, EF 60%. Patient and family updated on echocardiogram findings. Patient still does not want stress test or further ischemic work up. Patient informed to return to ER with any worsening of symptoms. Cardiology will sign off and follow up scheduled with cardiology as outpatient.
[2016-10-16 19:09] VITALS: BP 143/74
--- NOTE | 2016-10-16 20:34 | Discharge Summary ---
Date of Encounter: 10/16/16 Time of Encounter: 20:15 - Discharge Diagnosis (1) Chest pain Priority: Primary Status: Acute Qualifiers: Chest pain type: unspecified Qualified Code(s): R07.9 - Chest pain, unspecified (2) Degenerative cervical spinal stenosis Priority: Primary Status: Acute (3) Leukocytosis Priority: Primary Status: Acute Qualifiers: Leukocytosis type: unspecified Qualified Code(s): D72.829 - Elevated white blood cell count, unspecified (4) Neck pain on right side Priority: Primary Status: Acute (5) Tachycardia Priority: Primary Status: Acute (6) HTN (hypertension) Priority: Secondary Status: Chronic Qualifiers: Hypertension type: essential hypertension Qualified Code(s): I10 - Essential (primary) hypertension - Discharge Medications Prescriptions: Aspirin 81 mg PO DAILY 30 Days Atorvastatin [Lipitor] 20 mg PO HS 30 Days Metoprolol [Lopressor] 12.5 mg PO BID 30 Days Home Medications: Lisinopril [Zestril] 20 mg PO DAILY 08/28/15 [History] Aspirin 81 mg PO DAILY 30 Days 10/16/16 [Rx] Atorvastatin [Lipitor] 20 mg PO HS 30 Days 10/16/16 [Rx] Metoprolol [Lopressor] 12.5 mg PO BID 30 Days 10/16/16 [Rx] Allergies/Adverse Reactions: Allergies Penicillins [PCN] Allergy (Verified 10/16/16 09:14) Rash Procedures/tests Complete & Pending: Procedures Performed prior 72 hours Category Date Time Status CT cervical spine wo con [CT] Routine Cat Scan 10/16/16 08:30 Completed ECG 12 lead ECG [ECG] Routine Y 10/17/16 07:00 Ordered EV echocardiogram Routine Y 10/16/16 01:37 Completed Date of admission: 10/16/16 01:16 Primary care physician: Siena Martinez MD Consults: 10/16/16 01:37 Consult to Nurse Navigator [CONS] Routine Comment: 10/16/16 08:00 Consult to Cardiology [CONS] Routine Comment: Consulting Provider: Benita Nick Reason for Consult: Anginal chest pain, patient wants to talk to cardiology. Call Completed: No 10/16/16 14:52 Consult to Physician [CONS] Routine Consulting Provider: Emil Gonsalves Jr Reason for Consult: Severe C-spine DJD Call Completed: Yes Discharging clinician: Gordon Wilson Anticipated date of discharge: 10/16/16 - Patient Status Disposition: Home, Self-Care Condition: Good Overall status at discharge: patient is progressing back to baseline - Discharge Instructions Follow Up With: Siena Martinez MD [Primary Care Provider] - - Diet and Activity Activity: resume usual activities as tolerated Diet: low fat, low cholesterol, low salt diet, other (low fat, low cholesterol.) Interval History: No more neck pain. 2D ECHO: no wall motion abnormalities, no significant valve issues, EF 60%. Patient and family updated on echocardiogram findings cardiology team. Patient declines stress test or further ischemic work up at this time. Hospital course: Ms. Espinal is a 86 year old female with medical significant for HTN was admitted with right-sided neck pain with radiation to jaw, painn unrelieved by home use of Ibuprfen. Due to her age and comorbidities, CAD/ACS was considered. Serial troponin remained normal. CT of C-spine reviewed with multiple levels of degenerative joint disease noted. EKG reviewed, sinus rhythm with right bundle branch block. 2D ECHO showed no wall motion abnormalities, no significant valve issues, EF 60%. Patient and family updated on echocardiogram findings. Patient declines stress test or further ischemic work up at this time. Cardiology signed off, and will evaluate her further in the out-patient setting. Leucocytosis is trending down. Patient requested discharge tonight. She reports her neck pain had resolved. She was determined to get home tnight saying all her tests reported negative. At discharge No neck pain Accepatable range of neck movement (active) with reproduction of chest Chest pain not reproducible Heart: RRR, HS1/2 , no murmur Abdomen: soft, non-tender, no masses MATCH UP WORKER: AAO x 3, n gross focal neurological deficits. Extremities: no pedal edema Skin: No active skin lesion. IMP Neck pain with CT EVIDENCE of moderate to severe cervical spin degenerative disease. Cannot exclude CAD/ACS Hyperlipidemia Hypertension PLAN DC to follow-up with PCP and cardiology in the out-patient setting. Atorvastatin, metoprolol and aspirin prescribed. - Time Spent with Patient Total time spent providing and/or coordinating discharge services: - Constitutional Vitals: Temp Pulse Resp BP Pulse Ox 99.7 F H 81 16 143/74 94 L 10/16/16 19:09 10/16/16 19:09 10/16/16 19:09 10/16/16 19:09 10/16/16 19:09 General appearance: Present: A&O X 3, pleasant, no acute distress, answers questions appropriately
== END 2016-10-16 21:24 | disposition home or self-care (01) ==
LOC: 3BNU 23:11 → EMEROO 23:11 → SUATTDRO 10-16 01:16 → 3BNU 10-16 02:23
PROVIDERS: ADMIT Pediatrics; ATTEND Internal Medicine